=== PATIENT | female | born 1970 | race Caucasian/White ===

== ENCOUNTER → 2018-10-15 | Outpatient (CLI) | payer OTHER ==
--- NOTE | 2018-10-15 11:05 | P.STRESS ---
- Stress Test Note Stress Test Results/Findings: Exam Performed: Exam Date: Reason for Exam: Height: 0 in Weight: 0 g Protocol: Stage: Duration of Exercise: Resting Heart Rate: Resting Blood Pressure: Maximum Achieved Heart Rate: Maximum Achieved Blood Pressure: 85% PMHR: 100% PMHR: METS: Technologist Comment: Stress Test Results/Findings: Patient had 72 beats a minute, Baseline blood pressure 150/57 mmHg The center ECG shows normal sinus rhythm with normal cardiac intervals Patient exercised on a Giuliano protocol for 6 minutes. She was short of breath at peak exercise. Mild hypertensive response to exercise blood pressure 207/92 mmHg There is no ECG evidence for ischemia immediately following exercise. Baseline artifact during exercise In recovery no ECG evidence for ischemia Baseline today coverages was suboptimal and Definity contrast was used There was excellent augmentation of oral every contractility without involvement of any wall motion abnormalities @Recovery lesion: Systolic function and a normal Impression Laboratory excess capacity Elevated blood pressure readings at peak exercise Shortness of breath with exertion No ECG record graphic evidence of ischemia
--- NOTE | 2018-10-15 15:09 | ECHOS ---
Stress Test Results/Findings: Exam Performed: Stress Echo Exam Date: 10/15/18 Reason for Exam: Chest Pain Height: 63 in Weight: 213lbs Protocol: Stress Echo Stage: 3 Duration of Exercise: 6:30 Resting Heart Rate: 72 Resting Blood Pressure: 103/57 Maximum Achieved Heart Rate: 162 Maximum Achieved Blood Pressure: 207/92 85% PMHR: 146 100% PMHR: 172 METS: 9.7 Technologist Comment: Stress Test Results/Findings: Patient had 72 beats a minute, Baseline blood pressure 150/57 mmHg The center ECG shows normal sinus rhythm with normal cardiac intervals Patient exercised on a Giuliano protocol for 6 minutes. She was short of breath at peak exercise. Mild hypertensive response to exercise blood pressure 207/92 mmHg There is no ECG evidence for ischemia immediately following exercise. Baseline artifact during exercise In recovery no ECG evidence for ischemia Baseline today coverages was suboptimal and Definity contrast was used There was excellent augmentation of oral every contractility without involvement of any wall motion abnormalities @Recovery lesion: Systolic function and a normal Impression Laboratory excess capacity Elevated blood pressure readings at peak exercise Shortness of breath with exertion No ECG record graphic evidence of ischemia MTDD
== END | disposition home or self-care (01) ==
LOC: RADNMMAIN 09:51
PROVIDERS: ATTEND Family Medicine
DX: R07.89 Other chest pain (principal)
CPT/HCPCS: C8930; Q9950; 93351

== ENCOUNTER → 2021-12-25 | Outpatient (CLI) | payer OTHER ==
--- NOTE | 2021-12-25 14:53 | XR ---
EXAM TYPE: LUMBAR SPINE X RAY SERIES COMPARISON: NONE HISTORY: Pain TECHNIQUE: 2 views are submitted. FINDINGS: Alignment is anatomic. The pedicles are intact. The transverse processes are intact. There is grad e 1 anterolisthesis L4 and L5 with multilevel hypertrophic and degenerative disc disease. There are s evere degenerative disc disease L5-S1. There is facet arthropathy L4-5 and L5-S1. Diffuse osteopenia. Surgical clips in the right upper quadrant are noted. IMPRESSION: 1. Multilevel degenerative disc disease and facet arthropathy with severe degenerative disc disease L 5-S1. Suspect foraminal encroachment. 2. Grade 1 anterolisthesis L4 on L5 likely degenerative. 3. Moderate to severe degenerative disc disease thoracolumbar junction.
== END | disposition home or self-care (01) ==
LOC: RADXRYALE 14:23
PROVIDERS: ATTEND Nurse Practitioner
DX: M51.37 Other intervertebral disc degeneration, lumbosacral region (principal); M43.16 Spondylolisthesis, lumbar region; M47.816 Spondylosis without myelopathy or radiculopathy, lumbar region
CPT/HCPCS: 72100

== ENCOUNTER → 2023-03-25 | Outpatient (CLI) | payer OTHER ==
--- NOTE | 2023-03-27 13:00 | MM ---
Reason for Exam: Screening (asymptomatic). Last mammogram was performed 1 year(s) and 1 month(s) ago. Patient History: Menarche at age 12. First Full-Term at age 17. Perimenopausal. Risk Values: Reina 5 year model risk: 0.8%. NCI Lifetime model risk: 6.3%. Prior Study Comparison: 09/05/2020 Bilateral Screening Mammogram, Unknown. 02/07/2022 Bilateral MG 3D screening mammo w/cad, Unknown. Tissue Density: There are scattered fibroglandular densities. Findings: Analyzed By CAD. There is no suspicious group of microcalcifications or new suspicious mass in either breast. Punctate benign calcifications bilaterally. Overall Assessment: Benign, BI-RAD 2 Management: Screening Mammogram of both breasts in 1 year. . Patient should continue monthly self-breast exams. A clinical breast exam by your physician is recommended on an annual basis. This exam should not preclude additional follow-up of suspicious palpable abnormalities. Note on Reina scores and lifetime risk: 1. A Reina score greater than 3% is considered moderate risk. If this is the case, consider specialist referral to assess eligibility for a risk reducing agent. 2. If overall lifetime risk for the development of breast cancer is 20% or higher, the patient may qualify for future screening with alternating mammogram and breast MRI. Electronically signed and approved by: Vikram Brink M.D. Radiologis
== END | disposition home or self-care (01) ==
LOC: RADMAMWWP 13:35
PROVIDERS: ATTEND Family Medicine
DX: Z12.31 Encounter for screening mammogram for malignant neoplasm of breast (principal)
CPT/HCPCS: 77067

== ENCOUNTER 2023-10-07 08:03 | Day surgery (SDC) | payer OTHER ==
--- NOTE | 2023-10-05 11:19 | P.HPOR ---
History of Present Illness H&P Date: 10/05/23 Subjective: This is a 52 year old female that presents today for initial evaluation regarding a several year history of a left middle finger cyst with associated pain and swelling. She states she has had the cyst drained multiple times but it keeps coming back and remains painful for several months after drainage. She denies any injury. Denies any signs of previous infection. She states she has pain whenever she touches it or bumps the finger. Physical Examination: LUE: AIN/PIN/Radial/Ulnar/Median motor intact. Radial/Ulnar/Median SILT. 2+/4 Radial/Ulnar pulses palpated. 5/5 APB, 5/5 FDI. Negative Finkelsteins, negative CMC grind, negative Durkan's compression. 5mm round mucous cyst present at DIP joint of middle finger. TTP over cyst. Imaging: X-Rays of the left middle finger 2V taken in office today demonstrates mild to moderate arthritis at the DIP joint with dorsal osteophyte. Impression: 1.) Left middle finger DIP joint mucous cyst/osteoarthritis Plan: Diagnosis and treatment options were discussed with the patient. We discussed continued observation vs mucous cyst excision with dorsal osteophyte removal. She wishes to pursue a left middle finger mucous cyst excision with dorsal osteophyte excision. Risks and benefits of surgery including bleeding, infection, damage to surrounding tissue, need for further surgery, residual numbness, recurrence were discussed and the patient wished to go forward with surgery.The patient was agreeable with this plan. -Bunny Pantoja DO Orthopedic Hand/Upper Extremity Surgeon Past Medical History Past Medical History: Asthma, Musculoskeletal Disorder, Thyroid Disorder Additional Past Medical History / Comment(s): CHRONIC BACK PAIN. History of Any Multi-Drug Resistant Organisms: None Reported Past Surgical History: Cholecystectomy, Orthopedic Surgery, Tubal Ligation Additional Past Surgical History / Comment(s): REPAIR OF ACL LT KNEE X 2. SPINAL FUSION. LT CTR; D&C W/ 2 MISCARRIAGES. Past Anesthesia/Blood Transfusion Reactions: Postoperative Nausea & Vomiting (PONV) Past Psychological History: Anxiety, Bipolar Past Alcohol Use History: None Reported Additional Past Alcohol Use History / Comment(s): STARTED SMOKING AT AGE 17 Past Drug Use History: None Reported Medications and Allergies Home Medications Medication Instructions Recorded Confirmed Type ALPRAZolam [Xanax] 1 mg PO TID PRN 10/13/13 12/28/13 History Albuterol Inhaler [Ventolin 2 puff INHALATION Q4-6H PRN 10/13/13 12/28/13 History Inhaler] Citalopram Hydrobromide [CeleXA] 40 mg PO DAILY 10/13/13 12/28/13 History Levothyroxine Sodium [Synthroid] 50 mcg PO DAILY 10/13/13 12/28/13 History Mometasone/Formoterol [Dulera 100 2 puff INHALATION DAILY 10/13/13 12/28/13 History Mcg/5 Mcg Inhaler] buPROPion SR [Wellbutrin SR] 150 mg PO BID 10/13/13 12/28/13 History oxyBUTYnin chloride [Ditropan] 5 mg PO BID 10/13/13 12/28/13 History oxyCODONE-APAP 5-325MG [Percocet 2 each PO Q6HR PRN #240 tab 12/06/13 12/28/13 Rx 5-325 mg] Allergies Allergy/AdvReac Type Severity Reaction Status Date / Time meperidine HCl [From Demerol] AdvReac Nausea & Verified 12/27/13 11:36 Vomiting Physical Examination Osteopathic Statement: *. No significant issues noted on an osteopathic structural exam other than those noted in the History and Physical/Consult.
[2023-10-06 08:55] VITALS: BMI 36.3
[~2023-10-07 08:03] MED LIST: HYDROmorphone 0.5 MG/0.5 ML SYRINGE IVP PRN; LIDOCAINE 1% (10MG/ML) FOR IV START INTRADERMA PRN
[2023-10-07] MEDS: IV FLUID CONTINUATION 1,000 ML IV ONE (08:26)
[2023-10-07 08:46] LABS: Glucose,Whole Blood 239 mg/dL (70-110)
[2023-10-07] MEDS: LACTATED RINGERS 1,000 ML IV SCH (08:52)
[2023-10-07] MEDS: ONDANSETRON 4 MG/2 ML VIAL IVP ONE (08:52)
[2023-10-07] MEDS: INSULIN ASPART (NovoLOG) 100 UNIT/ML VIAL SQ ONE (08:59)
[2023-10-07 09:02] VITALS: TEMP 97.5
[2023-10-07] MEDS ORDERED: fentaNYL (PF) 50 MCG/ML 2 ML AMP ONE (09:03)
[2023-10-07] MEDS ORDERED: PROPOFOL 10 MG/ML 20 ML VIAL IV ONE (09:03)
[2023-10-07] MEDS ORDERED: MIDAZOLAM 2 MG/2 ML VIAL ONE (09:03)
[2023-10-07] MEDS ORDERED: PHENYLEPHRINE-0.9% NACL SYG 1,000 MCG/10 ML SYRINGE ONE (09:03)
[2023-10-07] MEDS: BUPIVACAINE (PF) 0.5% 30 ML VIAL SQ ONE (09:12)
[2023-10-07] MEDS: LIDOCAINE 2% INJ 20 MG/ML SQ ONE (09:12)
--- NOTE | 2023-10-07 09:50 | P.OP ---
Date of Procedure: 10/07/23 Preoperative Diagnosis: 1.)Left middle finger DIP joint osteoarthritis 2.) Left middle finger mucous cyst Postoperative Diagnosis: 1.)Left middle finger DIP joint osteoarthritis 2.) Left middle finger mucous cyst Procedure(s) Performed: 1.)Left middle finger DIP joint arthrotomy with excision of bone spur 2.) Left middle finger mucous cyst excision Anesthesia: MAC Surgeon: Bunny Pantoja Electronics Processing Supervisor #1: Jesus [place] Estimated Blood Loss (ml): 0 Pathology: none sent Condition: stable Disposition: PACU Description of Procedure: This is a 52 year old female with left middle finger DIP joint arthritis and a painful mucous cyst that has failed conservative treatment and presents today for a left middle finger DIP joint arthrotomy, mucous cyst excision and dorsal osteophyte excision. Risks and benefits of surgery were discussed with the patient including bleeding, damage to surrounding tissue, infection, need for further surgery as well as risks of anesthesia including pulmonary embolism and even and the patient wished to proceed with surgical intervention. The patient was seen in the pre-operative area by myself. Consent and H&P were completed and updated. The correct extremity was marked in the pre-operative area by myself and all other questions were answered. Operative Narrative: The patient was brought to the operating room by the department of anesthesia. They remained on the portable stretcher and a rolling hand table was brought to the side of the operative extremity. Pre-operative time out was performed indicating the correct patient, procedure and laterality. All in the room agreed. Pre-operative antibiotics were given prior to skin incision. The patient was then drifted off to sleep by the department of anesthesia. Digital block was performed with 7cc's of 0.5% Lidocaine and 1% lidocaine in a 50:50 mixture. A nonsterile tourniquet was then applied to the operative extremity and the left upper extremity was then prepped and draped in normal sterile fashion. The operative extremity was then exsanguinated with an esmarch bandage and the tourniquet was inflated to 250mmHg. 15 blade scalpel was utilized to make a T type incision over the DIP joint of the left middle finger. Sharp dissection was taken down though subcutaneous tissues. Extensor tendon was identified and preserved. 15 blade scalpel was then used to perform arthrotomy of the DIP joint on both the radial and ulnar boarders of the terminal extensor tendon. Origin of the 3mm mucuous cyst was identified coming from the DIP joint, cyst was ruptured and stalk was excised. Rongeur was utilized to removed radial and ulnar dorsal osteophytes. The wound was then closed with 4-0 nylon suture and a soft dressing was placed consisting of adaptic, bacitracin, 4x4s and tubegauz. Tourniquet was let down and the hand had immediate perfusion. The patient was then woken by the department of anesthesia and transferred to PACU in stable condition. Jesus DANIELSON was present for the case to assist in protection of neurovascular structures and other major portions of the case described above. Bunny Pantoja D.O. Orthopedic Hand/Upper Extremity Surgeon
[2023-10-07 10:23] VITALS: PULSE 67
[2023-10-07 10:24] VITALS: BP 112/74; RESP 18
== END 2023-10-07 10:26 | disposition home or self-care (01) ==
LOC: OR 08:03
PROVIDERS: ATTEND Orthopaedic Surgery Hand Surgery
DX: M19.042 Primary osteoarthritis, left hand (principal); L72.3 Sebaceous cyst; E07.9 Disorder of thyroid, unspecified; F31.9 Bipolar disorder, unspecified; F41.9 Anxiety disorder, unspecified; G89.29 Other chronic pain; J45.909 Unspecified asthma, uncomplicated; Z79.51 Long term (current) use of inhaled steroids; Z79.890 Hormone replacement therapy; Z88.5 Allergy status to narcotic agent; Z90.49 Acquired absence of other specified parts of digestive tract; Z98.51 Tubal ligation status
CPT/HCPCS: 81025; 26160; J2001; J2250; J0690; J2405; J3010; J2704; J2371; J0665

== ENCOUNTER → 2024-05-18 | Outpatient (CLI) | payer OTHER ==
--- NOTE | 2024-05-18 11:46 | MM ---
Reason for Exam: Screening (asymptomatic). Last mammogram was performed 1 year(s) and 2 month(s) ago. Patient History: Menarche at age 12. First Full-Term at age 17. Perimenopausal. Risk Values: Reina 5 year model risk: 0.8%. NCI Lifetime model risk: 6.2%. Prior Study Comparison: 09/05/2020 Bilateral Screening Mammogram, Unknown. 02/07/2022 Bilateral MG 3D screening mammo w/cad, Unknown. 03/25/2023 Bilateral MG screening mammo w CAD, [facility]. Tissue Density: There are scattered areas of fibroglandular density. Findings: Analyzed By CAD. There is no suspicious group of microcalcifications or new suspicious mass in either breast. Overall Assessment: Negative, BI-RAD 1 Management: Screening Mammogram of both breasts in 1 year. . Patient should continue monthly self-breast exams. A clinical breast exam by your physician is recommended on an annual basis. This exam should not preclude additional follow-up of suspicious palpable abnormalities. Note on Reina scores and lifetime risk: 1. A Reina score greater than 3% is considered moderate risk. If this is the case, consider specialist referral to assess eligibility for a risk reducing agent. 2. If overall lifetime risk for the development of breast cancer is 20% or higher, the patient may qualify for future screening with alternating mammogram and breast MRI. [facility], , 05/18/2024 11:43 AM. Electronically signed and approved by: Tk Antoine M.D. Radiologis
== END | disposition home or self-care (01) ==
LOC: RADMAMWWP 11:23
PROVIDERS: ATTEND Family Medicine
DX: Z12.31 Encounter for screening mammogram for malignant neoplasm of breast (principal); R92.323 Mammographic fibroglandular density, bilateral breasts
CPT/HCPCS: 77067